=== PATIENT | male | born 1980 | race Caucasian/White ===

== ENCOUNTER 2022-04-01 07:45 | Emergency (ER) | payer OTHER, SELFPAY ==
[2022-04-01 07:47] VITALS: BP 133/78; PULSE 70; RESP 16; TEMP 36.3; O2SAT 98; BMI 23.0
--- NOTE | 2022-04-01 07:59 | EKG12_ITS ---
Test Reason : CP Blood Pressure : / mmHG Vent. Rate : 077 BPM Atrial Rate : 077 BPM P-R Int : 154 ms QRS Dur : 086 ms QT Int : 354 ms P-R-T Axes : 067 080 046 degrees QTc Int : 400 ms Normal sinus rhythm with sinus arrhythmia Normal ECG Confirmed by GAY GUIDO, JUAN MANUEL ([id number]), online editor RAQUEL BORJA ([id number]) on 04/04/2022 1:45:33 PM Referred By: KHANG Confirmed By:JUAN MANUEL RASHID MD
--- NOTE | 2022-04-01 08:08 | RAD_ITS ---
STUDY: X-RAY CHEST REASON FOR EXAM: Male, 42 years old. Central chest pain TECHNIQUE: PA and lateral views of the chest. COMPARISON: None. FINDINGS: EKG electrodes are seen. Hyperinflation. The lungs are clear. There is no demonstrated pleural abnormality. Normal size heart. Normal mediastinum and hermann. Normal visualized pulmonary arteries. Normal visualized aortic arch and descending thoracic aorta. Normal visualized thoracic spine. Normal visualized ribs, clavicles, and shoulders. There is no demonstrated abnormality of the visualized soft tissue structures of the upper abdomen. RAD/Chest PA and Lateral IMPRESSION: Normal x-ray examination of the chest. Electronically Signed: Tanner Dow MD at 8:41 EST ,
[2022-04-01 08:23] LABS: Hematocrit 46.9 % (40-54); Hemoglobin 15.3 g/dL (13.0-16.5); Mean Corp Hgb Conc 32.6 g/dL (32-36); Mean Corpuscular Hgb 28.8 pg (27.0-32.0); Mean Corpuscular Volume 88.2 fL (80-94); Mean Platelet Vol. 9.1 fl (6.2-12.0); Platelet Count 317 K/mm3 (150-450); RBC Distribution Width CV 12.1 % (11.6-14.6); RBC Distribution Width SD 38.8 fl (35.1-43.9); Red Blood Count 5.32 M/mm3 (4.6-6.2); White Blood Count 4.7 K/mm3 (4.4-11.0)
[2022-04-01 08:35] LABS: Anion Gap 5 (5-15); BUN 14 mg/dL (7-18); BUN/Creat Ratio 12.6 RATIO (10-20); Calcium,Total 9.1 mg/dL (8.5-10.1); Chloride 104 mmol/L (98-107); Creatinine, Serum 1.11 mg/dL (0.70-1.30); EST Glomerular Filtration Rate 78 mL/min (>60); Est Glom Filt Rate - Afr Amer 94 mL/min (>60); Estimated Creatinine Clearance 96.49 ml/min; Glucose 59 mg/dL (74-106); Potassium 3.7 mmol/L (3.5-5.1); Sodium Level 140 mmol/L (136-145); Troponin-I HS 35 pg/mL (3.0-78.0)
--- NOTE | 2022-04-01 09:33 | ED.VIS.CHEST ---
HPI History of Present Illness Chief Complaint: Chest Pain Detail of Chief Complaint: Central chest pain Informant: patient Onset/Context/Timing Onset: Weeks (3 weeks) Activity at onset: sudden Timing: Intermittent (Minutes to hours) Quality: Positive for Pain Location: - (Central chest) Current Severity: Gone Maximum Severity: Severe Worsened By: Nothing Relieved By: Nothing Associated Symptoms: Positive for - (Patient can return to yesterday had numbness in his left upper extremity.); Negative for Nausea, Vomiting, Diaphoresis, Dyspnea, Cough, Fever, Lightheadedness, Acid Reflux or Palpitations Narrative Narrative: Patient is a 42-year-old male. He has no risk factors for coronary disease. He runs 3-4 times a week. He has noticed symptoms or anginal equivalent symptoms when he runs. There is no family history. Patient states has had intermittent central chest pain that has varied from minutes to hours over the past 3 weeks. He stated that he was going to come to the emergency department because urgent care would not see him and he does not have an appointment with his new doctor until April. He was seen by Dr. Chamebrs. Apparently Dr. Barcenas he no longer takes his insurance. He has an appointment to be seen at [facility].. Patient presently having no pain. He denies upper respiratory infectious symptoms. He denies black or maroon-colored stool. He does have history of gastritis. He is never had a scope. He has not not had imaging of his abdomen. Records from the clinic reveals he has no history of coronary disease and has not had an EGD or any imaging of his upper abdomen. Prior Similar Symptoms: Yes Recent Illness/Hospitalization: No CVD Risk Factors: Negative for Hypertension, Diabetes, Hypercholesterolemia, Family History 1' </=55 or Smoking PE Risk Factors: Negative for Recent Travel/Surgery, Recent Immobilization, Prior DVT or PE or Cancer TAD Risk Factors: Negative for Marfan's Syndrome, Hypertension or Family History PFSH PFSH Medical History no medical history no medical history Surgical History no surgical history no surgical history Social History (Updated 04/01/22 @ 09:[address] Jason Cook MD) household members: spouse and family Smoking Status: Never smoker substance use type: does not use ROS ROS ED Constitutional Constitutional ED: Denies chills, fever(s), subjective, sweats or weight loss Eyes Eyes: Reports none; Denies blurry vision or change in vision ENT ENT ED: Denies ear pain, rhinorrhea or sore throat Cardiovascular Cardiovascular: Reports as per HPI; Denies orthopnea or paroxysmal nocturnal dyspnea Respiratory/Chest Respiratory/Chest: Denies cough, dyspnea, dyspnea on exertion, orthopnea or paroxysmal nocturnal dyspnea Gastrointestinal Gastrointestinal: Denies abdominal pain, diarrhea, nausea or vomiting Genitourinary Genitourinary ED: Denies dysuria, hematuria or urinary frequency Musculoskeletal Musculoskeletal: Denies arthralgias, back pain, myalgias or neck pain Integumentary Denies Abrasions Psychiatric Psychiatric: Denies anxiety Endocrine Endocrinology: Denies polydipsia or polyuria Hematologic/Lymphatic Hematologic/Lymphatic: Denies easy bleeding or easy bruising EXAM Physical Exam Const Vital Signs: 04/01/22 07:47 04/01/22 07:55 Temperature 97.3 F L Temperature Source Temporal Pulse Rate 70 Respiratory Rate 16 Respiratory Effort Normal Non-Labored Blood Pressure 133/78 H Blood Pressure Mean 96 Pulse Ox 98 Oxygen Delivery Method Room Air Positive well nourished and well developed General Appearance ED: well developed and NAD HEENT Reports moist mucous membranes HEENT Narrative: Ears normal. Nares patent. normocephalic and atraumatic Eyes PERRL Neck no lymphadenopathy, supple and no JVD Chest Wall inspection of chest normal and palpation of chest normal Resp normal respiratory effort and clear to auscultation bilaterally Cardio regular rate, regular rhythm, S1 normal heart sound, S2 normal heart sound and no murmurs Peripheral Pulses: pulses 2+ throughout GI normal to inspection, nondistended, normoactive bowel sounds, soft to palpation, non-tender and non-distended; Negative for hepatosplenomegaly or no masses GI Narrative: Negative clinical Romeo sign Back/Spine no CVA tenderness Extremity normal to inspection Extremity Narrative: There is no asymmetry, swelling, discoloration, leg vein distention, palpable cords or tenderness along the distribution of the deep venous system. Neuro oriented x3, CN's II-XII intact bilaterally, no sensory deficits noted and gait normal Sensorium / Orientation: awake Skin no rashes or lesions noted and no wounds Heart Score History: Slightly/Non-Suspicious ECG: Normal Age: </= 45 years Risk Factors: No Risk Factors Troponin: </= Normal Limit Score: 0 MDM MDM MDM Narrative Medical decision making narrative: Patient presents with intermittent chest pain over the past 3 weeks. With hours of pain yesterday will obtain 1 troponin. CBC was obtained to evaluate for anemia since he has history of gastritis/esophagitis. Basic metabolic panel to assess renal function. EKG was obtained and reveals a normal sinus rhythm. Differential is cardiac versus noncardiac. Suspect this to be noncardiac and may actually be GI. He gives no symptoms of GERD. He states when he was diagnosed with gastritis he was placed on medication and changed his diet. He has had no pain over a year. Lab Data Labs: Laboratory Results - last 24 hr 04/01/22 04/01/22 08:05 08:05 WBC 4.7 RBC 5.32 Hgb 15.3 Hct 46.9 MCV 88.2 MCH 28.8 MCHC 32.6 RDW Std Deviation 38.8 RDW Coeff of Rach 12.1 Plt Count 317 MPV 9.1 Sodium 140 Potassium 3.7 Chloride 104 Carbon Dioxide 31.0 Anion Gap 5 BUN 14 Creatinine 1.11 Estim Creat Clear Calc 96.49 Est GFR (MDRD) Af Amer 94 Est GFR (MDRD) Non-Af 78 BUN/Creatinine Ratio 12.6 Glucose 59 L Calcium 9.1 Troponin I High Sens 35 Radiography Chest X-Ray - ED: 2 View and Read by ED Physician (Independently reviewed interpreted by me as negative. Cardiac silhouette and size normal. Perihilar region normal. Lung parenchyma normal. Osseous structures.) Diagnostic Testing: Clinical Impression(s) from Imaging Studies Chest X-Ray 04/01/22 08:08 IMPRESSION: Normal x-ray examination of the chest. Electronically Signed: Tanner Dow MD at 8:41 EST , Rhythm Strip Rhythm Strip: Sinus Rhythm Rate: 78 Ectopy: None EKG Initial EKG: Attestation: I personally reviewed and interpreted this EKG as follows: Interpretation: Sinus Rhythm (Normal with respiratory variance. Ventricular rate 77. NC interval is 154 ms per cures duration 86 ms. QT duration 304 ms. Mobile is normal) Discharge Plan Triage Chief Complaint: Chest Pain ED Provider: Jason Cook Dx/Rx/DC Orders Clinical Impression: Central chest pain, History of gastritis Primary Care Provider: Pedro Pablo Bradley Referrals: Pedro Pablo Bradley MD [Primary Care Provider] - Keep [place] appointment Disposition Disposition: Home, Self Care
[2022-04-01 10:11] VITALS: BP 112/78; PULSE 75; RESP 16; O2SAT 100
[2022-04-01 10:18] VITALS: BP 112/78; PULSE 75; RESP 16; O2SAT 100
== END 2022-04-01 10:20 | disposition home or self-care (01) ==
PROVIDERS: Emergency Provider Emergency Medicine; PCP Family Medicine; Visit Provider Emergency Medicine
DX: R07.89 Other chest pain (principal); Z87.19 Personal history of other diseases of the digestive system
CPT/HCPCS: 71046; 80048; 84484; 85027; 93005; 99284; A4216

== ENCOUNTER → 2022-04-22 | Outpatient (CLI) | payer OTHER, SELFPAY ==
[2022-04-22 10:14] LABS: Absolute Lymphocyte Count 2.29 X10^3/uL (0.83-4.51); Absolute Neutrophil Count 2.1 X10^3/uL (2.0-7.7); Basophil# 0.04 X10^3/uL; Basophil% 0.8 % (0-1); Eosinophil# 0.38 X10^3/uL; Eosinophils% 7.2 % (0-5); Hematocrit 46.4 % (40-54); Lymphocyte # 2.29 X10^3/ul (0.83-4.51); Lymphocyte % 43.5 % (19-41); Mean Corp Hgb Conc 32.3 g/dL (32-36); Mean Corpuscular Hgb 28.8 pg (27.0-32.0); Mean Corpuscular Volume 89.1 fL (80-94); Mean Platelet Vol. 9.8 fl (6.2-12.0); Monocyte# 0.49 X10^3/uL; Monocyte% 9.3 % (0-10); NRBC Flagged by Analyzer 0 % (0-5); Neutrophil # 2.06 X10^3/uL (2.7-7.7); Platelet Count 301 K/mm3 (150-450); RBC Distribution Width CV 12.3 % (11.6-14.6); RBC Distribution Width SD 40.1 fl (35.1-43.9); Red Blood Count 5.21 M/mm3 (4.6-6.2); White Blood Count 5.3 K/mm3 (4.4-11.0)
[2022-04-22 10:45] LABS: ALB/GLOB Ratio 1.1 RATIO (0.9-2.4); AST(SGOT) 15 U/L (15-37); Alanine Aminotransfer ALT/SGPT 14 U/L (16-61); Alkaline Phosphatase 56 U/L (45-117); Anion Gap 7 (5-15); BUN 19 mg/dL (7-18); Calcium,Total 9.5 mg/dL (8.5-10.1); Chloride 105 mmol/L (98-107); EST Glomerular Filtration Rate 88 mL/min (>60); Est Glom Filt Rate - Afr Amer 107 mL/min (>60); Globulin 3.7 g/dL (2.2-4.2); Glucose 91 mg/dL (74-106); Potassium 4.1 mmol/L (3.5-5.1); Protein, Total 7.7 g/dL (6.4-8.2); Sodium Level 139 mmol/L (136-145); Thyroid Stim Hormone (TSH) 1.31 uIU/mL (0.358-3.74)
== END | disposition home or self-care (01) ==
LOC: MTLAB 09:13
PROVIDERS: PCP Family Medicine; Referring Provider Family Medicine; Visit Provider Family Medicine
DX: K21.9 Gastro-esophageal reflux disease without esophagitis (principal); F41.9 Anxiety disorder, unspecified
CPT/HCPCS: 36415; 80053; 84443; 85025

== ENCOUNTER 2022-05-31 07:27 | Day surgery (SDC) | payer OTHER, SELFPAY ==
--- NOTE | 2022-05-31 07:39 | HP.PCM_ITS ---
History and Physical Date of Admission: 05/31/22 Visit Reasons:?Gerd/EGD Chief Complaint: gerd/egd Make Ready Worker Required: No Is patient in pain?: No Allergies No Known Allergies Allergy (Unverified 04/27/22 07:36) Medications bupropion HCl 150 mg 24 hr tablet, extended release 150 mg PO QAM 04/27/22 [History Confirmed 04/27/22] omeprazole 40 mg capsule,delayed release 40 mg PO DAILY 04/27/22 [History Confirmed 04/27/22] PFSH Social History?(Updated 04/01/22 @ 09:[address] Jason Cook MD) household members:? spouse and family Smoking Status:? Never smoker substance use type:? does not use HPI HPI HPI: 42-year-old gentleman is referred by Dr Pedro Pablo Bradley for surgical consultation regarding suspected gastroesophageal reflux disease.? Written copy of my surgical consult recommendations will return to him.By history 2020 he was diagnosed with gastritis and initiated on omeprazole.? He does have some chronic anxiety issues.? He also tried to change his diet.? He is now more recently developed a retrosternal burning sensation.? He is able to exercise 3-4 times a week without aggravation.? He has changed to omeprazole therapy with improvement. 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 He states that this is not a high stress position that would be adding difficulty to his symptoms January 2021 because of abdominal pain he was diagnosed by Dr. Kelby Reddy is having gastritis was initiated on omeprazole therapy but did not have change.? More recently February 2022 he developed retrosternal pain he did not associate it as heartburn.? No particular time of day no particular food intake he was able to run his normal runs and had no fatigue no shortness of breath.? He did complain of some slight intermittent arm numbness of unknown determine etiology.? April 01, 2022 went to the emergency room had an EKG blood pressure check chest x-ray laboratory and was instructed that they did not feel this was cardiac in etiology.? Then based upon knowledge over the Internet he changed his diet avoided tomato and sodas and coffee and he lost 10 to 15 pounds in weight and the pain subsided.? He then eased back into his normal diet.? Has redeveloped some retrosternal discomfort and this time it feels more like heartburn.? On 1 occasion though he had quite severe abdominal pain after eating pizza took multiple Tums without improvement. Now the discomfort is more mid retrosternal and low retrosternal.? He does not really describe right upper quadrant pain or radiating pain into the intrascapular back. He does not use tobacco.? No bright red blood per rectum or melena.? His weight now stabilized.? He has not had any imaging for gallbladder. ROS General General: No weight change, appetite, fatigue, colon cancer, breast cancer or weakness HEENT HEENT: No difficulty swallowing, eye injury, eye surgery, swollen glands or hoarseness Endo Endocrine: No thyroid disease, diabetes mellitus, thyroid cancer, Hair loss, heat intolerance or cold intolerance Skin Skin: No rash or changing moles Breast Breast: No left breast lump, right breast lump, nipple discharge, breast pain, abnormal mammogram, abnormal US or breast enlargement Musc Musculoskeletal: No back problems, arthritis, rheumatoid arthritis, gout or joint pain Cardio Cardiovascular: No murmur, pacemaker, heart disease, atrial fibrillation, high blood pressure, heart attack, heart stent, palpitations, shortness of breat with exertion or chest pain Psych Psychiatric: Yes anxiety; No depression or hearing voices Resp Respiratory: No shortness of breath, No sleep apnea, No cough, No COPD, No asthma, No emphysema and No wheezing Gastro Gastrointestinal: Yes abdominal pain, No nausea or vomiting, No diarrhea, No constipation, No blood in stool, Yes acid reflux, No hemorrhoids, No ulcers, No gallbladder problem and No black,tarry stools Ravi Hematologic: No blood thinners, No blood disorders, No bleeding, No anemia and No blood clots Neuro Neurologic: No system reviewed and no additional complaints, except as documented, No as per HPI, No abnormal gait, No abnormal hearing, No abnormal movements, No abnormal speech, No behavioral changes, No burning sensations, No confusion, No convulsions, No disequilibrium, No dizziness, No localized weakness, No frequent falls, No headache(s), No lack of coordination, No loss of vision, No memory loss, No numbness, No other visual disturbances, No radicular pain, No restless legs, No sensory deficit, No syncope, No tingling, No tremor(s), No weakness and No other Exam Const General: cooperative, healthy appearing and comfortable Nutritional Appearance: average body habitus Orientation: alert and awake [facility] Head: normal to inspection Eyes General: appearance normal, both eyes and all related structures Neck Neck: normal visual inspection Chest Chest palpation & inspection: normal inspection of the chest Resp Effort & Inspection: normal respiratory effort Auscultation: clear to auscultation bilaterally Cardio Rate: regular rate Rhythm: regular rhythm GI Palpation: soft and no hepatosplenomegaly Auscultation: normal bowel sounds Skin General: no rashes or lesions noted Neuro General: patient alert, patient awake and patient oriented x3 Extrem General: no calf tenderness Psych Appearance: grossly normal Assessment and Plan Assessment and Plan (1) GERD (gastroesophageal reflux disease): ?Status:?Acute ?Plan: 42-year-old gentleman with epigastric and retrosternal discomfort.? Findings certainly suspicious for gastritis and reflux esophagitis but interestingly proton pump inhibitor therapy and an acids have not provided complete resolution. I do recommend a esophagogastroduodenoscopy with possible biopsy.? He is aware of the technique, benefit, risk and alternatives.? He has had an opportunity to ask and have questions answered. I have instructed him that if this exam is completely unremarkable then I would recommend pursuing a gallbladder ultrasound.? I very much appreciate the kind opportunity of assisting with his surgical care Copy: Dr Pedro Pablo Bradley I have examined the patient and the H&P has been reviewed. There are no clinical changes since date of exam. Zaheer Chino M.D., F.A.C.S.
[2022-05-31] MEDS: Lactated Ringers 1,000 ML 15 ML IV (07:53)
[2022-05-31 07:54] VITALS: BP 127/61; PULSE 68; RESP 18; TEMP 36.6; O2SAT 100; BMI 23.0
--- NOTE | 2022-05-31 08:30 | IMM_PTH ---
PATIENT: SLICK PRATER LOC: EN U#:[id number] AGE/SX: 42/M ROOM: RE05/31/[address]: Dr. Zaheer Chino MD : 1980 BED: DIS: 05/31/2022 SPEC #: [id number] RECD: 05/31/22 11:49 STATUS: JEMMA REBeatriz #: [id number] RICHARD: 05/31/22 08:[address]: Zaheer Chino DEPT: IMMUNOHISTOCHEMISTRY RECD BY: Ayla Washington ENTERED: 05/31/22 11:49 SP TYPE: IMMUNO OTHR DR: Dr. Pedro Pablo Bradley MD Tissues: B - Stomach, NOS Procedures: H Pylori (initial) PHYSICIAN & INSTITUTION [place] [id number] SPECIMEN INFORMATION: Tissue Source: B - Antrum Clinical Info: GERD Specimen Number: [id number] CPT code: 15930 METHODOLOGY: Deparaffinized sections of prefer/formalin-fixed tissue or PAP/DQ stained slides are incubated with monoclonal/polyclonal antibodies/oligonucleotide probes. Localization is made via biotin free immunoperoxidase method. Appropriate controls are performed and reacted as expected. Results on target cell population are indicated in the following table: RESULTS: ANTIBODY / CLONE RESULT Block B H Pylori (polyclonal) negative These tests were developed and their performance characteristics determined by [facility]. They may not have been cleared or approved by the U.S. Food and Drug Administration. The FDA has determined that such clearance or approval is not necessary. The above immunohistochemical/dualISH markers are ordered and reviewed by the Pathologist. INTERPRETATION: B. Antrum, biopsy: Negative for Helicobacter pylori organisms. AM:fernanda 06/01/2022
--- NOTE | 2022-05-31 08:30 | EGD_PTH ---
PATIENT: SLICK PRATER LOC: EN U#:[id number] AGE/SX: 42/M ROOM: RE05/31/[address]: Dr. Zaheer Chino MD : 1980 BED: DIS: 05/31/2022 SPEC #: [id number] RECD: 05/31/22 10:07 STATUS: JEMMA SHERRIE #: [id number] RICHARD: 05/31/22 08:[address]: Zaheer Chino DEPT: SURGICAL PATHOLOGY RECD BY: Nimo Chamorro ENTERED: 05/31/22 10:51 SP TYPE: EGD BIOPSY OT DR: Dr. Pedro Pablo Bradley MD Tissues: A - Duodenum, NOS B - Gastric mucous membrane C - Esophagus, NOS D - Esophagus, NOS Procedures: Special Stain Group II Surgery Specimen Level IV Alcian Blue/PAS (control) HEADER OPERATION: EGD with biopsies ([facility]) PRE-OP DIAGNOSIS: GERD TISSUE SUBMITTED: A ? Duodenum biopsy, B ? Antrum for H. pylori and path, C ? Distal esophagus biopsy, D ? Mid esophagus biopsy MICROSCOPIC DIAGNOSIS A. Duodenum, biopsy: No pathologic change. B. Gastric antrum, biopsy: Chronic gastritis. See comment. C. Distal esophagus, biopsy: Gastroesophageal junctional mucosa with chronic inflammation. Consistent with reflux esophagitis. No evidence of goblet cell metaplasia. See comment. D. Mid esophagus, biopsy: No pathologic change. AM:fernanda 06/01/2022 COMMENT B. The results of immunohistochemistry for Helicobacter pylori will be reported separately ([id number]). C. Alcian blue/PAS stain with matched control supports the above diagnosis. MICROSCOPIC DESCRIPTION Slides are reviewed. GROSS DESCRIPTION A - Received in fixative is one container labeled with the patient's name and designated duodenum biopsy. The specimen consists of one irregular fragment of light kincaid soft tissue that measures 0.5 x 0.2 x 0.1 cm. The specimen is totally submitted in one cassette. B - Received in fixative is one container labeled with the patient's name and designated antrum biopsy. The specimen consists of one irregular fragment of light kincaid soft tissue that measures 0.4 x 0.3 x 0.1 cm. The specimen is totally submitted in one cassette. C - Received in fixative is one container labeled with the patient's name and designated distal esophagus biopsy. The specimen consists of multiple irregular fragments of light kincaid soft tissue that in aggregate measure 1.3 x 0.5 x 0.1 cm. The specimen is totally submitted in one cassette. D - Received in fixative is one container labeled with the patient's name and designated mid esophagus biopsy. The specimen consists of one irregular fragment of light kincaid soft tissue that measures 0.3 x 0.3 x 0.1 cm. The specimen is totally submitted in one cassette. / SJ:rg 05/31/2022 TC:3 CPT: 45159 x4, 91844
[2022-05-31 09:20] VITALS: BP 105/56; BP 127/61; PULSE 72; RESP 16; TEMP 36.6; O2SAT 97
--- NOTE | 2022-05-31 09:22 | OP.EGD_ITS ---
Patient Name: Kelby Aguilar Procedure Date: 05/31/2022 8:56 AM Date of : 1980 Age: 42 Procedure: Upper GI endoscopy Indications: Epigastric abdominal pain Providers: Zaheer Chino MD Medicines: See the Anesthesia note for documentation of the administered medications Complications: No immediate complications. Procedure: Pre-Anesthesia Assessment: - Prior to the procedure, a History and Physical was performed, and patient medications and allergies were reviewed. The patient's tolerance of previous anesthesia was also reviewed. The risks and benefits of the procedure and the sedation options and risks were discussed with the patient. All questions were answered, and informed consent was obtained. Prior Anticoagulants: The patient has taken no previous anticoagulant or antiplatelet agents. ASA Grade Assessment: II - A patient with mild systemic disease. After reviewing the risks and benefits, the patient was deemed in satisfactory condition to undergo the procedure. After obtaining informed consent, the endoscope was passed under direct vision. Throughout the procedure, the patient's blood pressure, pulse, and oxygen saturations were monitored continuously. The Endoscope was introduced through the mouth, and advanced to the second part of duodenum. The upper GI endoscopy was accomplished without difficulty. The patient tolerated the procedure well. Scope In: 9:08:23 AM Scope Out: 9:16:07 AM Total Procedure Duration Time 0 hours 7 minutes 44 seconds Findings: Esophagitis with no bleeding was found 41 cm from the incisors. Biopsies obtained The middle third of the esophagus was normal. Biopsies were taken with a cold forceps for histology. Diffuse mildly erythematous mucosa without bleeding was found in the gastric antrum. Biopsies were taken with a cold forceps for histology. The examined duodenum was normal. Biopsies were taken with a cold forceps for histology. A 1 cm hiatal hernia was present. Impression: - Reflux esophagitis. Rule out Mckeon's esophagus. Small hiatal hernia - Normal middle third of esophagus. Biopsied. - Erythematous mucosa in the antrum. Biopsied. - Normal examined duodenum. Biopsied. Recommendation: - Discharge patient to home. - Resume previous diet. - Continue present medications. - Telephone my office for pathology results in 1 week Visually these findings appear rather mild. We will await pathology report. If epigastric pain persists then consider gallbladder ultrasound.. Procedure Code(s): --- Professional --- 64740, Esophagogastroduodenoscopy, flexible, transoral; with biopsy, single or multiple Diagnosis Code(s): --- Professional --- K21.0, Gastro-esophageal reflux disease with esophagitis K31.89, Other diseases of stomach and duodenum R10.13, Epigastric pain CPT copyright 2017 [employer]. All rights reserved. The codes documented in this report are preliminary and upon funding analyst review may be revised to meet current compliance requirements. Zaheer Chino MD 05/31/2022 9:22:30 AM This report has been signed electronically. Number of Addenda: 0 Note Initiated On: 05/31/2022 8:56 AM
--- NOTE | 2022-05-31 09:23 | OP.CCLET_ITS ---
05/31/2022 Pedro Pablo Bradley [address] [place] [address] Re : Upper GI endoscopy procedure for Kelby Aguilar Dear Dr. Bradley This procedure was performed on Tuesday, May 31, 2022. My impressions and recommendations are as follows: Impressions : - Reflux esophagitis. Rule out Mckeon's esophagus. Small hiatal hernia - Normal middle third of esophagus. Biopsied. - Erythematous mucosa in the antrum. Biopsied. - Normal examined duodenum. Biopsied. Recommendations : - Discharge patient to home. - Resume previous diet. - Continue present medications. - Telephone my office for pathology results in 1 week Visually these findings appear rather mild. We will await pathology report. If epigastric pain persists then consider gallbladder ultrasound.. My findings are described in the full procedure note, which is enclosed. If I can be of further assistance, please feel free to contact me at Doctor phone number(s): Work: . Sincerely, Zaheer Chino MD 05/31/2022 9:22:30 AM This report has been signed electronically.
[2022-05-31 09:25] VITALS: BP 121/46; BP 127/61; PULSE 83; RESP 16; O2SAT 99
[2022-05-31 09:29] VITALS: BP 110/70; BP 127/61; PULSE 80; RESP 16; O2SAT 98
[2022-05-31 09:35] VITALS: BP 118/74; BP 127/61; PULSE 77; RESP 16; O2SAT 98
[2022-05-31 09:44] VITALS: BP 127/61
== END 2022-05-31 10:07 | disposition home or self-care (01) ==
LOC: EN 07:29 → AC 07:30
PROVIDERS: PCP Family Medicine; Referring Provider Family Medicine; Visit Provider Surgery
PROC: 0DJ08ZZ Inspection of Upper Intestinal Tract, Via Natural or Artificial Opening Endoscopic (ICD-10-PCS; CPT 43235; principal; 2022-05-31 08:25)
DX: K44.9 Diaphragmatic hernia without obstruction or gangrene (principal); F41.9 Anxiety disorder, unspecified; K21.00 Gastro-esophageal reflux disease with esophagitis, without bleeding; K29.50 Unspecified chronic gastritis without bleeding; Z79.899 Other long term (current) drug therapy
CPT/HCPCS: 43239; 88305; 88313; 88342; J7120; J2405

== ENCOUNTER → 2023-07-25 | Outpatient (CLI) | payer OTHER, SELFPAY ==
[2023-07-25 13:32] LABS: ALB/GLOB Ratio 1.1 RATIO (0.9-2.4); AST(SGOT) 30 U/L (15-37); Alanine Aminotransfer ALT/SGPT 29 U/L (16-61); Albumin, Serum 4.1 g/dL (3.2-5.0); Alkaline Phosphatase 59 U/L (45-117); Anion Gap 4 (5-15); BUN 16 mg/dL (7-18); BUN/Creat Ratio 16.6 RATIO (10-20); Calcium,Total 9.4 mg/dL (8.5-10.1); Chloride 105 mmol/L (98-107); Cholesterol 190 mg/dL (200); Creatinine, Serum 0.96 mg/dL (0.70-1.30); EST Glomerular Filtration Rate 91 mL/min (>60); Est Glom Filt Rate - Afr Amer 111 mL/min (>60); Globulin 3.6 g/dL (2.2-4.2); Glucose 85 mg/dL (74-106); High Density Lipoprotein 60 mg/dL; Potassium 3.9 mmol/L (3.5-5.1); Protein, Total 7.7 g/dL (6.4-8.2); Sodium Level 136 mmol/L (136-145); Triglycerides 47 mg/dL; Very Low Density Lipoprotein 9 mg/dL (5-40)
== END | disposition home or self-care (01) ==
LOC: MTLAB 09:38
PROVIDERS: PCP Family Medicine; Referring Provider Nurse Practitioner Family; Visit Provider Nurse Practitioner Family
DX: Z13.220 Encounter for screening for lipoid disorders (principal); Z13.1 Encounter for screening for diabetes mellitus
CPT/HCPCS: 36415; 80053; 80061